=== PATIENT | male | born 1950 | race Hispanic/Latino ===

== ENCOUNTER 2017-10-01 02:16 | Emergency (ER) | payer SELFPAY, OTHER ==
[2017-10-01] MEDS ORDERED: Metoclopramide HCl 10 MG/2 ML VIAL ONE (04:36)
[2017-10-01] MEDS ORDERED: diphenhydrAMINE 50 MG/ML VIAL ONE (04:36)
[2017-10-01 04:50] LABS: #Eosinphils 0.4 thou/uL (0.0-0.7); #Lymphocytes 1.4 thou/uL (1.20-3.40); #Monocytes 0.5 thou/uL (0.11-0.59); #Neutrophils 5.5 thou/uL (1.40-6.50); %Basophils 0.3 % (0.0-1.0); %Eosinophils 4.6 % (0.0-10.0); %Lymphocytes 17.7 % (21.0-51.0); %Monocytes 6.3 % (0.0-10.0); Hematocrit 43.1 % (42.0-52.0); Mean Platelet Volume 8.6 fL (7.4-10.4); Red Blood Cell (RBC) Count 4.63 mill/uL (4.70-6.10); White Blood Cell (WBC) Count 7.8 thou/uL (4.8-10.8)
[2017-10-01 05:24] LABS: BUN (Urea Nitrogen) 15 mg/dL (8.4-25.7); Bilirubin, Total 0.6 mg/dL (0.2-1.2); Calc. Creatinine Clearance 0 mL/min (70-130); Calcium 9.6 mg/dL (7.8-10.44); Carbon Dioxide 24 mmol/L (23-31); Estimated GFR-MDRD Greater than 90; Protein, Total 7.4 g/dL (5.8-8.1)
[2017-10-01 05:25] LABS: ALT (SGPT) 22 U/L (8-55); AST (SGOT) 17 U/L (5-34); Alkaline Phosphatase 62 U/L (40-150); Globulin 3.4 g/dL (2.4-3.5)
[2017-10-01] MEDS ORDERED: Ketorolac Tromethamine 30 MG/ML VIAL ONE (05:57)
[2017-10-01 05:58] LABS: Chloride 102 mmol/L (98-107)
[2017-10-01 06:17] LABS: Anion Gap 14 mmol/L (10-20)
--- NOTE | 2017-10-01 07:51 | CT ---
PRELIMINARY REPORT/[facility]/EMERGENCY AFTER HOURS PROCEDURE: EXAM: CT Head Without Intravenous Contrast CLINICAL HISTORY: 67 years old, male; Pain; Headache; Headache not specified; Patient HX: CONTRERAS TECHNIQUE: Axial computed tomography images of the head/brain without intravenous contrast. COMPARISON: No relevant prior studies available. FINDINGS: Brain: There is prominent CSF space of the left temporal lobe probably arachnoid cyst of mid cranial fossa. No hemorrhage. No significant white matter disease. Ventricles: Unremarkable. No ventriculomegaly. Bones/joints: There is deformity of the left lamina papyracea. No acute fracture. Soft tissues: Unremarkable. Sinuses: Unremarkable as visualized. No acute sinusitis. Mastoid air cells: Unremarkable as visualized. No mastoid effusion. IMPRESSION: No acute findings. Thank you for allowing us to participate in the care of your patient. Dictated and Authenticated by: Bridget Sibley DO 10/01/2017 5:10 AM Central Time ([place] \T\ [place]) FINAL REPORT EMERGENCY AFTER HOURS BRAIN CT WITHOUT IV CONTRAST: Date: 10/01/17 Time: 0456 hours COMPARISON: 11/04/13. FINDINGS/IMPRESSION: No mass, bleed, or other acute process. Report in agreement with preliminary report given on-call by [place]. POS: [facility]
== END 2017-10-01 07:07 | disposition home or self-care (01) ==
LOC: ERS 02:16
DX: R51 Headache (principal); M79.1 Myalgia; E11.9 Type 2 diabetes mellitus without complications; Z79.84 Long term (current) use of oral hypoglycemic drugs
CPT/HCPCS: 36415; 70450; 80053; 85025; 96361; 96365; 96375; J1200; J1885; J2765